=== PATIENT | male | born 1980 | race Two or more races ===

== ENCOUNTER 2024-11-13 11:53 | Inpatient (IN) | payer MEDICAID, OTHER ==
[~2024-11-13] VITALS: Ht 160 cm; Wt 76.3 kg
[2024-11-13 12:27] LABS: COVID AG,FIA SOURCE NASAL SWAB
[2024-11-13 12:32] LABS: PLATELET COUNT (AUTO) 293 K/uL (150-450); RED BLOOD CELL COUNT(AUTO) 4.06 MIL/uL (4.50-5.90); RED CELL DISTRIBUTION WIDTH 13.6 % (11.5-14.5); WHITE BLOOD COUNT (AUTO) 15.5 K/uL (4.5-11.0)
[2024-11-13 12:34] LABS: APPEARANCE,URINE CLEAR (CLEAR); GLUCOSE, URINE (UA) NEGATIVE (NEGATIVE); LEUKOCYTE ESTERASE ,URINE NEGATIVE (NEGATIVE); NITRATE,URINE NEGATIVE (NEGATIVE); OCCULT BLOOD,URINE SMALL (NEGATIVE); PH,URINE DRUG SCREEN 6.0 (5.0-8.0); SPECIFIC GRAVITIY, URINE 1.025 (1.003-1.030)
[2024-11-13 12:40] LABS: ALCOHOL, URINE DRUG SCREEN NEGATIVE (NEGATIVE); AMPHET/METH SCREEN,URINE POSITIVE (NEGATIVE); BARBITURATE SCREEN, URINE NEGATIVE (NEGATIVE); CANNABINOID SCREEN,URINE POSITIVE (NEGATIVE); COCAINE SCREEN,URINE NEGATIVE (NEGATIVE); METHADONE SCREEN, URINE NEGATIVE (NEGATIVE)
[2024-11-13 12:41] LABS: CALCIUM, TOTAL 9.2 mg/dL (8.8-10.5); CREATININE 0.81 mg/dL (0.60-1.30); GLOMERULAR FILTR. RATE CALC > 60 mL/min (>60); GLUCOSE,RANDOM 106 mg/dL (70-110); SODIUM SERUM 144 mmol/L (136-145); UREA NITROGEN, BLOOD 20 mg/dL (7-18)
[2024-11-13] MEDS: LORazepam 2 MG/ML VIAL IM ONE (12:42)
[2024-11-13 12:47] LABS: SQUAMOUS EPITHELIAL CELL,UR Rare /LPF (None Seen)
[2024-11-13 13:13] LABS: SARS-COV2 (COVID) ANTIGEN,FIA Negative (Negative)
[2024-11-13 18:04] VITALS: O2SAT 99
[2024-11-13 22:10] VITALS: BP 108/63; PULSE 100; RESP 17; TEMP 97.9; O2SAT 97
[2024-11-14] MEDS: ZOLPIDEM TARTRATE 10 MG TABLET PO PRN (00:20)
[2024-11-14 08:30] VITALS: BP 113/82; PULSE 89; RESP 18; TEMP 97.8; O2SAT 100
[2024-11-14] MEDS ORDERED: PETROLATUM,WHITE 28 GM JELLY TP PRN (10:00)
[2024-11-14] MEDS ORDERED: ALBUTEROL SULFATE HFA 90 MCG/PUFF 8 GM INHALER IH PRN (10:00)
[2024-11-14] MEDS ORDERED: MAGNESIUM HYDROXIDE SUSPENSION 30 ML UDCUP PO PRN (10:00)
[2024-11-14] MEDS ORDERED: OMEPRAZOLE 20 MG CAPSULE PO PRN (10:00)
[2024-11-14] MEDS ORDERED: BENZOCAINE/MENTHOL [CEPACOL] LOZENGE PO PRN (10:00)
[2024-11-14] MEDS ORDERED: LOPERAMIDE HCL 2 MG CAPSULE PO PRN (10:00)
[2024-11-14] MEDS ORDERED: ONDANSETRON 4 MG TABLET PO PRN (10:00)
[2024-11-14] MEDS ORDERED: MAG HYDROX/ALUMINUM HYD/SIMETH ES 30 ML SUSPENSION UDCUP PO PRN (10:00)
[2024-11-14] MEDS ORDERED: DOCUSATE SODIUM 100 MG CAPSULE PO PRN (10:00)
[2024-11-14] MEDS ORDERED: BACITRACIN 28 GM OINTMENT TP PRN (10:00)
[2024-11-14] MEDS ORDERED: DIVA-159 PO (10:04)
[2024-11-14] MEDS ORDERED: FLUO10CA51 PO (10:04)
[2024-11-14] MEDS: DIVALPROEX SODIUM 250 MG DR TABLET PO SCH (12:33)
[2024-11-14] MEDS: LORazepam 2 MG/ML VIAL IM ONE (13:03)
[2024-11-14 20:08] VITALS: BP 108/87; PULSE 91; RESP 17; TEMP 96.5; O2SAT 98
[2024-11-15 05:34] VITALS: BP 115/79; PULSE 88; RESP 18; TEMP 96.1; O2SAT 99
[2024-11-15] MEDS: IBUPROFEN 600 MG TABLET PO PRN (05:34)
[2024-11-15 08:06] VITALS: BP 122/74; PULSE 90; RESP 17; TEMP 97.4; O2SAT 98
[2024-11-15 09:10] VITALS: BP 121/76; PULSE 89; RESP 18; TEMP 94.3; TEMP 97.3; O2SAT 100
[2024-11-15 10:20] VITALS: BP 135/88; PULSE 92; RESP 18; TEMP 97.1; O2SAT 100
[2024-11-15 21:01] VITALS: BP 118/87; PULSE 99; RESP 17; TEMP 97.5; O2SAT 100
[2024-11-16 08:13] VITALS: BP 119/90; PULSE 86; RESP 17; TEMP 97.3; O2SAT 100
[2024-11-16] MEDS ORDERED: LORazepam 2 MG/ML VIAL ONE (08:47)
[2024-11-16] MEDS: LORazepam 2 MG/ML VIAL IM ONE (09:02)
[2024-11-17 06:31] VITALS: BP 124/87; PULSE 90; RESP 17; TEMP 97.4; O2SAT 99
[2024-11-17 06:32] VITALS: RESP 17
[2024-11-17 07:40] VITALS: RESP 17
[2024-11-17 08:23] VITALS: BP 141/88; PULSE 98; RESP 18; TEMP 97.4; O2SAT 98
[2024-11-17] MEDS: NICOTINE POLACRILEX 4 MG LOZENGE PO PRN (09:08)
[2024-11-17 20:27] VITALS: BP 148/97; PULSE 78; RESP 18; TEMP 97.5; O2SAT 98
[2024-11-18 09:13] VITALS: BP 132/81; PULSE 95; RESP 18; TEMP 97.9; O2SAT 100
[2024-11-18] MEDS ORDERED: LORazepam 2 MG/ML VIAL ONE (11:27)
[2024-11-18] MEDS: LORazepam 2 MG/ML VIAL IM ONE (12:36)
[2024-11-18 20:07] VITALS: BP 117/80; PULSE 100; RESP 18; TEMP 97.6; O2SAT 99
[2024-11-19 06:36] VITALS: RESP 18
[2024-11-19 07:40] VITALS: BP 122/89; PULSE 88; RESP 18; O2SAT 97
[2024-11-19 08:02] VITALS: BP 122/89; PULSE 88; RESP 18; TEMP 97.1; O2SAT 97
[2024-11-19 15:43] VITALS: PULSE 80; RESP 17; O2SAT 99
[2024-11-19 16:43] VITALS: RESP 17; O2SAT 99
[2024-11-19 20:21] VITALS: BP 142/76; PULSE 85; RESP 18; TEMP 97.7; O2SAT 97
[2024-11-20 01:22] VITALS: RESP 20
[2024-11-20 08:12] VITALS: BP 137/90; PULSE 102; RESP 18; TEMP 97.4; O2SAT 98
[2024-11-20] MEDS: NICOTINE POLACRILEX 2 MG LOZENGE PO PRN (12:25)
[2024-11-20 16:21] VITALS: RESP 17
[2024-11-20 17:21] VITALS: RESP 18
[2024-11-20] MEDS: ACETAMINOPHEN 325 MG TABLET PO PRN (18:21)
[2024-11-20] MEDS ORDERED: LORazepam 2 MG/ML VIAL ONE (19:12)
[2024-11-20 19:22] VITALS: RESP 19
[2024-11-20] MEDS: LORazepam 2 MG/ML VIAL IM ONE (19:22)
[2024-11-20] MEDS ORDERED: BENZOCAINE/MENTHOL/ZINC CL 20% 11.9 GM GEL TP PRN (20:00)
[2024-11-20 20:32] VITALS: BP 128/85; PULSE 80; RESP 17; TEMP 97; O2SAT 99
[2024-11-21 04:23] VITALS: BP 123/78; PULSE 80; RESP 18; TEMP 98; O2SAT 98
[2024-11-21 08:50] VITALS: BP 124/89; PULSE 86; RESP 17; TEMP 97.6; O2SAT 98
[2024-11-21 09:49] LABS: PLATELET COUNT (AUTO) 322 K/uL (150-450); RED BLOOD CELL COUNT(AUTO) 4.39 MIL/uL (4.50-5.90); RED CELL DISTRIBUTION WIDTH 13.3 % (11.5-14.5); WHITE BLOOD COUNT (AUTO) 8.0 K/uL (4.5-11.0)
[2024-11-21 10:32] LABS: ASPARTATE AMINOTRANSFERASE 44 U/L (15-37); CALCIUM, TOTAL 9.1 mg/dL (8.8-10.5); CREATININE 0.66 mg/dL (0.60-1.30); GLOMERULAR FILTR. RATE CALC > 60 mL/min (>60); GLUCOSE,RANDOM 130 mg/dL (70-110); PHOSPHORUS 4.3 mg/dL (2.5-4.9); SODIUM SERUM 137 mmol/L (136-145); TOTAL PROTEIN, SERUM 6.8 g/dL (6.4-8.2); UREA NITROGEN, BLOOD 13 mg/dL (7-18)
[2024-11-21] MEDS ORDERED: DIVA-111 PO (11:24)
[2024-11-21] MEDS ORDERED: FLUO-342 PO (11:28)
[2024-11-21 11:35] LABS: CHOL/HDL RATIO 3.0 (4.2-7.3); LDL CHOL (CALC.) 73 mg/dL (0-130)
[2024-11-21] MEDS ORDERED: CLIN-142 PO (11:38)
[2024-11-21] MEDS ORDERED: FLUO-177 PO (12:21)
[2024-11-21] MEDS ORDERED: OLAN5TAB52 PO (12:22)
[2024-11-21] MEDS ORDERED: FLUO20SO PO (12:25)
[2024-11-21] MEDS ORDERED: DIVA-112 PO (12:27)
[2024-11-21] MEDS ORDERED: FLUO20CA32 PO (12:29)
[2024-11-22] MEDS ORDERED: OLAN5TAB52 PO (05:45)
[2024-11-22] MEDS ORDERED: FLUO-418 PO (05:45)
[2024-11-22] MEDS ORDERED: DIVA-111 PO (05:45)
== END 2024-11-21 14:54 | disposition home or self-care (01) | DRG 750 ==
LOC: EMS 12:42 → B3A 16:17
PROVIDERS: ADMIT Psychiatry & Neurology Psychiatry; ATTEND Psychiatry & Neurology Psychiatry
PROC: GZHZZZZ Group Psychotherapy (ICD-10-PCS; principal; 2024-11-14)
PROC: GZ52ZZZ Individual Psychotherapy, Cognitive (ICD-10-PCS; 2024-11-15)
DX: F25.0 Schizoaffective disorder, bipolar type (principal); R45.851 Suicidal ideations; D72.829 Elevated white blood cell count, unspecified; F41.9 Anxiety disorder, unspecified; G47.00 Insomnia, unspecified; K59.00 Constipation, unspecified; F12.10 Cannabis abuse, uncomplicated; F11.10 Opioid abuse, uncomplicated; F15.10 Other stimulant abuse, uncomplicated; Z20.822 Contact with and (suspected) exposure to COVID-19; Z59.00 Homelessness unspecified; Z88.0 Allergy status to penicillin; Z79.899 Other long term (current) drug therapy; Z72.0 Tobacco use
CPT/HCPCS: 70450; 72125; 80048; 80053; 80061; 80164; 80307; 81001; 83036; 83735; 84100; 84443; 85025; 96372; 99285; G0480; J1200; J1630; J2060